=== PATIENT | male | born 1995 | race Two or more races ===

== ENCOUNTER 2020-11-26 07:35 | Emergency (ER) | payer OTHER, SELFPAY ==
[2020-11-26 07:31] VITALS: BP 143/88; PULSE 90; RESP 20; TEMP 36.5; O2SAT 97
--- NOTE | 2020-11-26 07:54 | ED.NAVMDI ---
HPI - Nausea/Vomiting/Diarrhea General Chief complaint: Unspecified Stated complaint: WITHDRAWALS History of Present Illness HPI Narrative: 25 yo male presents to the ED for fentanyl withdrawal. He reports that he last used 4 days ago. and he is trying to stay off of it. He was previously on methadone. Currently he has nausea, abdominal cramps, and diarrhea. Additionally he reports nasal congestion and sinus pressure. Related Data Allergies Allergy/AdvReac Type Severity Reaction Status Date / Time No Known Allergies Allergy Verified 11/26/20 07:35 Review of Systems Review of Systems: All systems reviewed & are unremarkable except as noted in HPI and below Constitutional: Constitutional: Denies chills and Denies fever(s) Eyes: Eyes: Reports no additional eye complaints ENT: Denies dizziness, Reports nasal congestion and Denies sore throat Cardiovascular: Cardiovascular: Denies chest pain Respiratory: Respiratory: Denies dyspnea Gastrointestinal: Gastrointestinal: Reports as per HPI Genitourinary: Genitourinary: Reports no additional male genitourinary complaints Neurologic: Reports system reviewed and no additional complaints, except as documented [facility] Social History Social History (Updated 11/26/20 @ 17:00 by Case Mai MD) Substance use type: opiates Gender identity (if verbalized by the patient): Male Exam Const: General: healthy appearing, no acute distress and alert Nutritional Appearance: well nourished Orientation/consciousness: patient oriented x3 HENMT: Head: normal to inspection Eyes: Pupils: Equal, round and reactive pupils present Neck: Neck: normal visual inspection Resp: Effort & Inspection: normal respiratory effort Auscultation: clear to auscultation bilaterally Cardio: Rate: regular rate Rhythm: regular rhythm GI: Inspection: non-distended GI Palp: Yes Soft to palpation and No Tenderness to palpation present (GI) Skin: General skin exam: normal color Neuro: General: patient oriented x3, moves all extremities, no focal motor deficits and CN's II-XI intact bilaterally Speech: normal speech Extrem: General: normal to inspection Psych: Appearance: grossly normal Mental Status: mental status grossly normal Affect: normal affect Attitude: cooperative Thought content: No Suicidality present and No Homicidality present Course Vital Signs Vital signs: Vital Signs Temperature 36.5 C 11/26/20 07:31 Pulse Rate 90 11/26/20 07:31 Respiratory Rate 20 11/26/20 07:31 Blood Pressure 143/88 H 11/26/20 07:31 Pulse Oximetry 97 11/26/20 07:31 Temperature 36.5 C 11/26/20 07:31 Pulse Rate 78 11/26/20 09:45 Respiratory Rate 20 11/26/20 09:45 Blood Pressure 126/84 11/26/20 09:45 Pulse Oximetry 100 11/26/20 09:45 MDM - Nausea/Vomiting/Diarrhea MDM Narrative Medical decision making narrative: Feeling better with symptomatic treatment. Resources for drug treatment provided. Differential Diagnosis Differential diagnosis: Likely gastroenteritis, dehydration and other (opiod withdrawal) Medical Records Attestation: I reviewed the patient's medical records. Lab Data Attestation: I reviewed the patient's lab results. Result diagrams: 11/26/20 08:03 11/26/20 08:03 Labs: Lab Results 11/26/20 11/26/20 11/26/20 Range/Units 08:03 08:03 08:03 WBC 10.6 H (4.5-10.0) K/mm3 RBC 5.15 (4.6-6.20) M/mm3 Hgb 15.6 (14.0-18.0) g/dL Hct 45.2 (42.0-52.0) % MCV 87.8 (80-100) fl MCH 30.3 (26-34) pg MCHC 34.5 (32-36) g/dl RDW 11.9 (11.5-14.5) % Plt Count 348 (150-375) k/mm3 MPV 9.7 (7.4-10.4) fl Immature Gran % (Auto) 0.3 (0-0.5) % Neut % (Auto) 80.6 H (45.5-73.1) % Lymph % (Auto) 14.2 L (18.3-44.2) % [place] % (Auto) 4.6 (2.6-8.5) % Eos % (Auto) 0.1 (0-4.4) % Baso % (Auto) 0.2 (0.2-1.2) % Lymph # (Auto) 1.51 (0.9-3.2) K/mm3 [place] # (Auto)
[2020-11-26] MEDS: DICYCLOMINE HCL INJ 20 MG/2 ML VIAL IM (08:04)
[2020-11-26] MEDS: SODIUM CHLORIDE 0.9% IV 1,000 ML 999 ML IV CONT (08:04)
[2020-11-26] MEDS: ONDANSETRON INJ 4 MG/2 ML VIAL IV PUSH (08:04)
[2020-11-26 08:13] LABS: Basophils Percent Auto 0.2 % (0.2-1.2); Eosinophils Percent Auto 0.1 % (0-4.4); Hematocrit 45.2 % (42.0-52.0); Hemoglobin 15.6 g/dL (14.0-18.0); Immature Granulocyte Absolute 0.03 K/mm3 (0.00-0.031); Immature Granulocyte Percent A 0.3 % (0-0.5); Lymphocytes Absolute Auto 1.51 K/mm3 (0.9-3.2); Lymphocytes Percent Auto 14.2 % (18.3-44.2); Mean Corpuscular HGB Conc 34.5 g/dl (32-36); Mean Corpuscular Hemoglobin 30.3 pg (26-34); Mean Corpuscular Volume 87.8 fl (80-100); Mean Platelet Volume 9.7 fl (7.4-10.4); Monocytes Absolute Auto 0.5 K/mm3 (0.1-0.6); Monocytes Percent Auto 4.6 % (2.6-8.5); Neutrophils Absolute Auto 8.6 K/mm3 (1.3-6.7); Neutrophils Percent Auto 80.6 % (45.5-73.1); Platelet Count Result 348 k/mm3 (150-375); Red Blood Count 5.15 M/mm3 (4.6-6.20); Red Cell Distribution Width 11.9 % (11.5-14.5); White Blood Count 10.6 K/mm3 (4.5-10.0)
[2020-11-26 08:15] LABS: Add Urine Microscopic? NO; Appearance Urine Clear (Clear); Bilirubin Urine Negative (Negative); Blood Urine Negative (Negative); Color Urine Yellow (Yellow); Glucose Urine UA Negative (Negative); Ketones Urine Negative (Negative); Leukocyte Esterase Ur Negative LEU/UL (Negative); Nitrate Urine Negative (Negative); Protein Urine Negative (Negative); Specific Grav Ur 1.009 (1.001-1.035); Urobilinogen Urine Negative mg/dL (<2.0)
[2020-11-26 08:22] LABS: Alanine Aminotransferase 30 U/L (4-50); Albumin Level 5.5 g/dL (3.5-5.1); Alkaline Phosphatase 72 U/L (38-126); Anion Gap 11 mmol/L (8-16); Aspartate Amino Transferase 43 U/L (17-59); Bilirubin,Total 0.8 mg/dL (0.2-1.3); Blood Urea Nitrogen 11 mg/dL (9-20); Calcium 10.6 mg/dL (8.4-10.2); Carbon Dioxide 28 mmol/L (22-30); Chloride 101 mmol/L (98-107); Estimated CRCL calculation 116 ml/min; Estimated Glomerular Filt Rate > 60; Glucose 113 mg/dL (75-110); Lipase 23 U/L (23-300); Potassium 3.6 mmol/L (3.4-5.0); Sodium 140 mmol/L (137-145)
[2020-11-26] MEDS: cloNIDine 0.1 MG/24 HR PATCH 1 PATCH TRANSDERM (09:02)
[2020-11-26 09:03] VITALS: BP 129/83; PULSE 80; RESP 20; O2SAT 97
[2020-11-26 09:45] VITALS: BP 126/84; PULSE 78; RESP 20; O2SAT 100
== END 2020-11-26 09:50 | disposition home or self-care (01) ==
PROVIDERS: Emergency Provider Emergency Medicine
DX: F11.23 Opioid dependence with withdrawal (principal)
CPT/HCPCS: 36415; 80053; 81003; 83690; 85025; 96361; 96372; 96374; 99284; A9270; J0500; J2405; J7030

== ENCOUNTER 2022-03-26 10:55 | Emergency (ER) | payer OTHER, SELFPAY ==
[2022-03-26 11:15] VITALS: BP 135/91; PULSE 103; RESP 24; TEMP 37.3; O2SAT 100
[2022-03-26] MEDS: ONDANSETRON HCL ODT 4 MG TABLET SUBLINGUAL (11:25)
--- NOTE | 2022-03-26 11:37 | ED.ABDPAIN ---
HPI - Abdominal Pain General Chief Complaint: Abdominal Pain Stated Complaint: abd pain Time Seen by Provider: 03/26/22 11:30 Source: patient and RN notes reviewed Mode of arrival: ambulatory Limitations: no limitations History of Present Illness HPI narrative: 26 y/o male presented for c/o right sided abdominal pain, nausea and vomiting for 24 hours. Pt is sweating. Endorses hx alcoholism last drink 2 days ago. Drinks at least 1 bottle Luis Daniel daily. Hx opioid withdrawal 04/2021, denies current use. States he was in the hospital a few months ago told 'his gallbladder ruptured,' denies surgery. Denies cough, sob or wheezing. Related Data Allergies Allergy/AdvReac Type Severity Reaction Status Date / Time No Known Allergies Allergy Verified 03/26/22 11:08 Review of Systems Review of Systems: CONSTITUTIONAL: reports body aches, fever, chills ENT: Denies rhinorrhea, congestion CARDIOVASCULAR: Denies chest pain, palpitations, or edema. RESPIRATORY: Denies cough or dyspnea. GASTROINTESTINAL: Endorses right sided abdominal pain, nausea, vomiting, diarrhea. Denies hematochezia, melena, hematemesis GENITOURINARY: Denies dysuria, hematuria, or CVA tenderness. SKIN: Denies rash, itching, or wounds. MUSCULOSKELETAL: Denies back pain, joint pain, or myalgia. NEUROLOGIC: Denies headache, numbness, tingling, or weakness. All systems reviewed & are unremarkable except as noted in HPI and below PMFSH Social History Social History Substance use type: opiates Gender identity (if verbalized by the patient): Male Comments At time of signature, I have reviewed and agree with nursing past medical, surgical, social and family history unless otherwise noted. Please see nursing chart for further information. There is no relevant family history pertinent to the presenting complaint Exam Narrative: GENERAL: illl-appearing, no acute distress. EYES: EOMI. Conjunctivae normal. ENT: Mucous membranes pink and moist. CHEST: No respiratory distress. Clear to auscultation. HEART: Tachycardic, regular No murmur appreciated. Normal peripheral pulses. ABDOMEN: abd soft, nondistended, Tender abdomen Right upper and lower quadrants with guarding EXTREMITIES: Normal range of motion. No edema. SKIN: Warm,diaphoretic Capillary refill normal. Normal skin turgor. NEURO: Alert and oriented x3. PSYCH: Normal affect. Course Course Emergency Course: Patient is aware of diagnosis, understands and agrees to treatment plan. Anticipatory guidance given. Portions of this record may have been created with voice recognition software Level of Care: Express Care Visit Transfer Transfered to: [facility] Transportation: ALS Transfer rationale: Pt is agreeable to transfer to ER for evaluation of abdominal pain and vomiting. Requests transfer to [facility] via ambulance. Risks of transportation reviewed with pt including injury, worsening of condition and . v/u. Report called to hospital, spoke with Sandy Miller PA-C, accepting physician. Pt is in stable condition at time of transfer. Advised to remain NPO and go directly to the hospital. MDM - Abdominal Pain MDM Narrative Medical decision making narrative: Pt advised to transfer to ER for further evaluation. Pt was dropped off by in-laws, requests ambulance transfer. Differential Diagnosis Differential diagnosis: Likely abdominal pain, acute appendicitis, calculus of kidney, gastroenteritis and pancreatitis Discharge Plan Discharge Clinical Impression: Abdominal pain Qualifiers: Abdominal location: right lower quadrant Qualified Code(s): R10.31 - Right lower quadrant pain Patient Disposition: Acute Care Hospital Condition: Stable Prescriptions: No Action ondansetron HCl [Zofran] 4 mg tablet 4 mg PO Q6H PRN (Reason: nausea and vomiting) Qty: 10 0RF dicyclomine 20 mg tablet 20 mg PO TID Qty: 10 0RF Fo
== END 2022-03-26 11:48 | disposition short-term general hospital (02) ==
PROVIDERS: Emergency Provider Nurse Practitioner Family
DX: R10.31 Right lower quadrant pain (principal)
CPT/HCPCS: 99215; A9270; G0463

== ENCOUNTER 2022-03-26 12:05 | Observation (INO) | payer OTHER, SELFPAY ==
[2022-03-26] VITALS (32 sets, daily range): BP systolic 110–155; BP diastolic 52–91; PULSE 63–112; RESP 8–23; TEMP 36.6–37.3; O2SAT 96–100; BMI 21.6
--- NOTE | ~2022-03-26 | CT_ITS ---
EXAMINATION: CT abdomen pelvis w con DATE: 03/26/2022 16:57 INDICATION: abd pain TECHNIQUE: Computed tomography (CT) of the abdomen and pelvis was performed with 100 mL Omnipaque-350 intravenous contrast. Automated exposure control and iterative reconstruction technique were employe d. The dose-length product was 502.37 mGy-cm. COMPARISON: None. FINDINGS: Lower thorax: Unremarkable Liver: Normal. Biliary/Gallbladder: Gallbladder is normal. No bile duct dilation. Pancreas: No mass or duct dilation. Spleen: Normal. Adrenals:No mass. Kidneys: No mass, stone, or hydronephrosis. GI tract: No small or large bowel dilation. Normal appendix. Mesentery/Peritoneum: No ascites, mass, or free air. Retroperitoneum: No mass. Pelvis: Pelvic organs are within normal limits. Soft Tissues: Soft tissues and body wall unremarkable. Bones: No acute osseous finding. IMPRESSION: No acute abdominopelvic process detected. Reviewed, dictated and finalized at location K.
--- NOTE | 2022-03-26 12:21 | ECG_ITS ---
Measurements Intervals [place] Rate: 84 P: 60 WV: 166 QRS: 50 QRSD: 88 T: 31 QT: 360 QTc: 427 Interpretive Statements SINUS RHYTHM NORMAL ECG NO PREVIOUS ECG AVAILABLE FOR COMPARISON Electronically Signed On 03-26-2022 15:25:59 CDT by Madi Garg D.O.
--- NOTE | 2022-03-26 12:23 | ED.NAVMDI ---
HPI - Nausea/Vomiting/Diarrhea General Chief complaint: Nausea/Vomiting/Diarrhea Stated complaint: nausea vomiting no ETOH x 48 hrs daily drinker Time Seen by Provider: 03/26/22 12:13 Source: patient, EMS, RN notes reviewed and old records reviewed Mode of arrival: EMS Limitations: no limitations History of Present Illness HPI Narrative: 26 years old white female referred to our emergency room by ambulance from urgent care complaining of nausea, vomiting over the last 24 hours. Last alcohol intake was 48 hours ago. Patient reports drinking on average 1-1/2 bottle of whiskey/vodka daily. Patient been to [facility] before, less than 1 year ago for alcohol addiction management. Patient also complaining of tremors all over his body. Related Data Allergies Allergy/AdvReac Type Severity Reaction Status Date / Time No Known Allergies Allergy Verified 03/26/22 11:08 Review of Systems Review of Systems: All systems reviewed & are unremarkable except as noted in HPI and below PMFSH Social History Social History Substance use type: opiates Gender identity (if verbalized by the patient): Male Exam Narrative: General appearance: Well-developed, well-nourished, restless, tremors Skin: Normal color Head: Normocephalic, nontraumatic Eyes: Clear conjunctiva ENT: Oropharynx normal, ears normal, nose normal Neck: Supple, nontender Chest and respiratory: Airway patent, no respiratory distress, no accessory muscle use Heart: Regular rate/rhythm Abdomen: Soft, nontender, no organomegaly, quiet bowel sounds Vascular: Normal peripheral pulses, normal capillary refill. 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 Patient still not feeling well, with tremors and shaking. Patient will be admitted, observation. Vital Signs Vital signs: Vital Signs Temperature 37.3 C 03/26/22 12:01 Pulse Rate 75 03/26/22 12:01 Respiratory Rate 21 H 03/26/22 12:01 Blood Pressure 155/91 H 03/26/22 12:01 Pulse Oximetry 96 03/26/22 12:01 Temperature 37.3 C 03/26/22 12:01 Pulse Rate 88 03/26/22 15:00 Respiratory Rate 10 L 03/26/22 15:00 Blood Pressure 118/65 03/26/22 14:46 Pulse Oximetry 100 03/26/22 15:00 MDM - Nausea/Vomiting/Diarrhea Lab Data Result diagrams: 03/26/22 12:54 03/26/22 12:54 Labs: Lab Results 03/26/22 03/26/22 03/26/22 Range/Units 12:54 12:54 12:54 WBC 12.0 H (4.5-10.0) K/mm3 RBC 5.45 (4.6-6.20) M/mm3 Hgb 16.4 (14.0-18.0) g/dL Hct 47.2 (42.0-52.0) % MCV 86.6 (80-100) fl MCH 30.1 (26-34) pg MCHC 34.7 (32-36) g/dl RDW 12.7 (11.5-14.5) % Plt Count 384 H (150-375) k/mm3 MPV 9.3 (7.4-10.4) fl Immature Gran % (Auto) 0.4 (0-0.5) % Neut % (Auto) 87.7 H (45.5-73.1) % Lymph % (Auto) 8.3 L (18.3-44.2) % [place] % (Auto) 3.4 (2.6-8.5) % Eos % (Auto) 0.0 (0-4.4) % Baso % (Auto) 0.2 (0.2-1.2) % Lymph # (Auto) 1.00 (0.9-3.2) K/mm3 [place] # (Auto) 0.4 (0.1-0.6) K/mm3 Eos # (Auto) 0.0 (0-0.3) K/mm3 Baso # (Auto) 0.0 (0.0-0.1) K/mm3 Abs Immat Gran (auto) 0.05 H (0.00-0.031) K/mm3 Absolute Neuts (auto) 10.6 H (1.3-6.7) K/mm3 Absolute Nucleated RBC 0.0 (0.0-0.012) K/mm3 Nucleated RBC % 0.0 (0.0-0.2) % PT 13.4 (11.1-14.7) Seconds INR 1.1 Sodium 140 (137-145) mmol/L Potassium 3.9 (3.4-5.0) mmol/L Chloride 97
[2022-03-26] MEDS: LORazepam INJ (*CRX) 2 MG/ML VIAL IV PUSH ×3 (12:37→23:47)
[2022-03-26 13:02] LABS: Basophils Percent Auto 0.2 % (0.2-1.2); Hematocrit 47.2 % (42.0-52.0); Hemoglobin 16.4 g/dL (14.0-18.0); Immature Granulocyte Absolute 0.05 K/mm3 (0.00-0.031); Immature Granulocyte Percent A 0.4 % (0-0.5); Lymphocytes Percent Auto 8.3 % (18.3-44.2); Mean Corpuscular HGB Conc 34.7 g/dl (32-36); Mean Corpuscular Hemoglobin 30.1 pg (26-34); Mean Corpuscular Volume 86.6 fl (80-100); Mean Platelet Volume 9.3 fl (7.4-10.4); Monocytes Absolute Auto 0.4 K/mm3 (0.1-0.6); Monocytes Percent Auto 3.4 % (2.6-8.5); Neutrophils Absolute Auto 10.6 K/mm3 (1.3-6.7); Neutrophils Percent Auto 87.7 % (45.5-73.1); Platelet Count Result 384 k/mm3 (150-375); Red Blood Count 5.45 M/mm3 (4.6-6.20); Red Cell Distribution Width 12.7 % (11.5-14.5)
[2022-03-26 13:09] LABS: Alanine Aminotransferase 16 U/L (6-50); Albumin Level 5.6 g/dL (3.5-5.1); Alkaline Phosphatase 80 U/L (38-126); Anion Gap 21 mmol/L (8-16); Aspartate Amino Transferase 23 U/L (17-59); Bilirubin,Total 1.2 mg/dL (0.2-1.3); Blood Urea Nitrogen 19 mg/dL (9-20); Carbon Dioxide 22 mmol/L (22-30); Chloride 97 mmol/L (98-107); Creatine Kinase 50 U/L (55-170); Estimated CRCL calculation 97 ml/min; Estimated Glomerular Filt Rate > 60; Glucose 115 mg/dL (65-110); Potassium 3.9 mmol/L (3.4-5.0); Sodium 140 mmol/L (137-145)
[2022-03-26 13:10] LABS: Ethanol < 10 mg/dL (<10)
[2022-03-26 13:11] LABS: INR 1.1; Prothrombin Time 13.4 Seconds (11.1-14.7)
[2022-03-26] MEDS: THIAMINE HCL INJ 100 MG, FOLIC ACID INJ 1 MG, MULTIVITAMINS-12 INJ VIAL 1 5 ML, MULTIVI... 500 MG IV CONT (13:28)
[2022-03-26 13:38] LABS: Appearance Urine Clear (Clear); Bilirubin Urine 2+ (Negative); Blood Urine Negative (Negative); Color Urine Yellow (Yellow); Glucose Urine UA Negative (Negative); Ketones Urine 4+ mg/dL (Negative); Leukocyte Esterase Ur Negative LEU/UL (Negative); Nitrate Urine Negative (Negative); Protein Urine 2+ mg/dL (Negative); Specific Grav Ur >= 1.030 (1.001-1.035); pH Urine 5.5 (5.0-9.0)
[2022-03-26] MEDS: LORazepam INJ (*CRX) 2 MG/ML VIAL 1 MG IV PUSH ×2 (13:51→18:40)
[2022-03-26 14:09] LABS: Add Urine Microscopic? YES; RBC Urine 0-2 /hpf (0-2); WBC Urine 0-3 /hpf
[2022-03-26 14:10] LABS: Amorphous Sediment Urine Few; Squamous Epithelial Cell Urine Rare /hpf (Few)
[2022-03-26 14:11] LABS: Bacteria Urine Trace /hpf; Mucus Urine Moderate /lpf
--- NOTE | 2022-03-26 15:31 | PC.NURSE ---
patient given crackers and water per verbal from
--- NOTE | 2022-03-26 16:22 | PM.IMHP ---
H&P: HPI History of Present Illness Date/Time: 03/26/22 16:22 Chief Complaint: Nausea vomiting diarrhea Narrative: This is a 26-year-old male patient who has a history of alcoholism. The patient states that he drinks about on half of Del Duncan a day. He has not had any alcohol the has 48 hours. Patient stated that he has nausea vomiting and alcohol withdrawal symptoms for last 24 hours. The patient stated that only Ativan helps him. The patient had been seen at [facility] last any year ago for alcohol addiction management. The patient has also had withdrawals from opiates in the past as well. His alcohol levels less than 10 today. The patient was given a banana bag in the emergency room, Ativan, and Zofran in the emergency room. His white count is noted to be 12.0. The patient is being admitted to observation status on the date of service of 03/26/2022. Review of Systems Review of Systems: See HPI All systems reviewed & are unremarkable except as noted in HPI and below Constitutional: Constitutional: Reports as per HPI and Reports no additional constitutional complaints Eyes: Eyes: Reports as per HPI and Reports no additional eye complaints ENT: Reports system reviewed and no additional complaints, except as documented and Reports Normal hearing present Cardiovascular: Cardiovascular: Reports no additional cardiovascular complaints Respiratory: Respiratory: Reports no additional respiratory complaints and Reports no additional respiratory complaints Gastrointestinal: Gastrointestinal: Reports as per HPI and Reports no additional gastrointestinal complaints Musculoskeletal: Musculoskeletal: Reports no additional musculoskeletal complaints Integumentary/Breasts: Skin/Breast: Reports system reviewed and no additional complaints, except as docu and Reports as per HPI Neurologic: Reports system reviewed and no additional complaints, except as documented, Reports as per HPI and Reports Normal hearing present Psychiatric: Psychiatric: Reports no additional psychiatric complaints and Reports as per HPI Endocrine: Endocrine: Reports no additional endocrine complaints Hematologic/Lymphatic: Hematologic/Lymphatic: Reports no additional hematologic/lymphatic complaints Allergic/Immunologic: Allergic/Immunologic: Reports no additional allergic/immunologic complaints [facility] Past Medical History Medical History Alcohol abuse Anxiety PTSD (post-traumatic stress disorder) Surgical History Surgical History H/O wisdom tooth extraction Family History Family History Father Alcoholism Mother Heart disease Sibling Mental disorder Social History Social History (Updated 03/26/22 @ 19:05 by Zulma Nieto NP) Social History: He is and has 1 child who is getting ready to be 1-year-old. He works at [employer] as a cook. He drinks one and half bottles of del Duncan daily. He occasionally smokes marijuana. Substance use type: opiates Gender identity (if verbalized by the patient): Male Meds Home Medications and Allergies Home Medications Medication Instructions Recorded Confirmed Type dicyclomine 20 mg tablet 20 mg PO TID #10 tabs 11/26/20 Rx ondansetron HCl 4 mg tablet 4 mg PO Q6H PRN nausea and 11/26/20 Rx (Zofran) vomiting #10 tabs Allergies Allergy/AdvReac Type Severity Reaction Status Date / Time No Known Allergies Allergy Verified 03/26/22 11:08 Vital Signs Vital Signs - 24 hr 03/26/22 12:01 03/26/22 12:45 03/26/22 12:46 Temperature 37.3 C Pulse Rate 75 92 79 Respiratory Rate 21 H 14 11 L Blood Pressure 155/91 H 126/68 Pulse Oximetry 96 99 99 03/26/22 13:00 03/26/22 13:15 03/26/22 13:30 Temperature Pulse Rate 78 90 86 Respiratory Rate 18 12 17 Blood Pressure 134/87 Pulse Oximetry 100
[2022-03-26] MEDS: SODIUM CHLORIDE 0.9% IV 1,000 ML 125 ML IV CONT ×2 (16:31→23:46)
[2022-03-26 16:55] LABS: Magnesium 2.2 mg/dL (1.6-2.3); Phosphorus 3.2 mg/dL (2.5-4.5)
[2022-03-26 17:00] LABS: Lipase 30 U/L (23-300)
[2022-03-26] MEDS: METOCLOPRAMIDE HCL INJ 10 MG/2 ML VIAL IV PUSH (18:41)
--- NOTE | 2022-03-26 19:14 | PC.NURSE ---
Librium not given due to patient vomiting
--- NOTE | 2022-03-26 19:35 | ADMGEN ---
This patient, Sharan Rich, was admitted to IMU Room 204-01. Patient/family oriented to hospital policies and general routines including ID bracelet, bed and alarms, visiting hours, pain management, procedures, bathroom and other care routines, personal items, smoking policy, room service/diet, and visiting hours. Information on how to activate the Rapid Response Team has been discussed. Patient/Family are encouraged to report perceived risks to care and to ask questions if they do not understand what they are told or what they should do.
[2022-03-26 20:10] LABS: Glucose Point of Care 101 mg/dl (65-105)
[2022-03-26] MEDS: chlordiazePOXIDE (*CRX) 25 MG CAPSULE 50 MG PO ×2 (20:18→23:46)
[2022-03-26] MEDS: PANTOPRAZOLE SODIUM IV 40 MG VIAL IV PUSH (20:18)
[2022-03-26 20:32] LABS: Amphetamine Screen Urine Negative (Negative); Barbiturate Screen Urine Negative (Negative); Benzodiazepines Screen Urine Negative (Negative); Cannabinoid Screen Urine Positive (Negative); Cocaine Screen Urine Negative (Negative); Methadone Screen Urine Negative (Negative); Opiate Screen Urine Negative (Negative); Phencyclidine Screen Urine Negative (Negative)
[2022-03-26] MEDS: NICOTINE (*PBKC) 21 MG PATCH 1 PATCH TRANSDERM (21:19)
[2022-03-27] VITALS (8 sets, daily range): BP systolic 121–136; BP diastolic 61–97; PULSE 73–94; RESP 20; TEMP 37.1–37.4; O2SAT 100
[2022-03-27] MEDS: LORazepam INJ (*CRX) 2 MG/ML VIAL IV PUSH ×2 (04:22→08:20)
[2022-03-27] MEDS: ONDANSETRON INJ 4 MG/2 ML VIAL IV PUSH (04:38)
[2022-03-27 04:46] LABS: Basophils Percent Auto 0.3 % (0.2-1.2); Eosinophils Absolute Auto 0.1 K/mm3 (0-0.3); Eosinophils Percent Auto 0.5 % (0-4.4); Hematocrit 41.1 % (42.0-52.0); Hemoglobin 13.7 g/dL (14.0-18.0); Immature Granulocyte Absolute 0.07 K/mm3 (0.00-0.031); Immature Granulocyte Percent A 0.6 % (0-0.5); Lymphocytes Absolute Auto 1.76 K/mm3 (0.9-3.2); Lymphocytes Percent Auto 14.9 % (18.3-44.2); Mean Corpuscular HGB Conc 33.3 g/dl (32-36); Mean Corpuscular Volume 90.1 fl (80-100); Mean Platelet Volume 9.6 fl (7.4-10.4); Monocytes Absolute Auto 1.2 K/mm3 (0.1-0.6); Monocytes Percent Auto 10.4 % (2.6-8.5); Neutrophils Absolute Auto 8.6 K/mm3 (1.3-6.7); Neutrophils Percent Auto 73.3 % (45.5-73.1); Platelet Count Result 282 k/mm3 (150-375); Red Blood Count 4.56 M/mm3 (4.6-6.20); Red Cell Distribution Width 12.8 % (11.5-14.5); White Blood Count 11.8 K/mm3 (4.5-10.0)
[2022-03-27 05:14] LABS: Alanine Aminotransferase 10 U/L (6-50); Albumin Level 4.3 g/dL (3.5-5.1); Alkaline Phosphatase 55 U/L (38-126); Anion Gap 15 mmol/L (8-16); Aspartate Amino Transferase 17 U/L (17-59); Bilirubin,Total 1.4 mg/dL (0.2-1.3); Blood Urea Nitrogen 17 mg/dL (9-20); Calcium 8.8 mg/dL (8.4-10.2); Carbon Dioxide 19 mmol/L (22-30); Chloride 106 mmol/L (98-107); Estimated CRCL calculation 104 ml/min; Estimated Glomerular Filt Rate > 60; Glucose 85 mg/dL (65-110); Potassium 3.6 mmol/L (3.4-5.0); Sodium 140 mmol/L (137-145)
[2022-03-27] MEDS: SODIUM CHLORIDE 0.9% IV 1,000 ML 125 ML IV CONT (08:21)
[2022-03-27] MEDS: THIAMINE HCL 200 MG/2 ML VIAL 100 MG IV PUSH (09:16)
[2022-03-27] MEDS: FOLIC ACID 1 MG/0.2 ML INJ IV PUSH (09:17)
[2022-03-27] MEDS: PANTOPRAZOLE SODIUM IV 40 MG VIAL IV PUSH (09:17)
[2022-03-27] MEDS: ENOXAPARIN 40 MG/0.4 ML SYRINGE SUB-Q (09:18)
[2022-03-27] MEDS: NICOTINE (*PBKC) 21 MG PATCH 1 PATCH TRANSDERM (09:18)
[2022-03-27] MEDS: chlordiazePOXIDE (*CRX) 25 MG CAPSULE 50 MG PO (11:00)
--- NOTE | 2022-03-29 14:54 | PM.DS ---
DS: Admitting Diagnosis Discharge Date 03/27/22 Admitting Diagnosis Nausea/Vomiting/Diarrhea DS: Discharge Diagnosis Discharge Diagnosis (1) Alcohol withdrawal syndrome: Code(s): F10.939 - Alcohol use, unspecified with withdrawal, unspecified Status: Acute (2) Alcohol abuse: Code(s): F10.10 - Alcohol abuse, uncomplicated Status: Acute (3) PTSD (post-traumatic stress disorder): Code(s): F43.10 - Post-traumatic stress disorder, unspecified Status: Acute (4) Anxiety: Code(s): F41.9 - Anxiety disorder, unspecified Status: Acute (5) Abdominal pain: Qualifiers: Abdominal location: right lower quadrant Qualified Code(s): R10.31 - Right lower quadrant pain Code(s): R10.9 - Unspecified abdominal pain Status: Inactive DS: Summary Hospital Course Reason for hospitalization: 26yo male here for Nausea/Vomiting/Diarrhea Hospital Course: Patient was seen in the ED and was evaluated. He was admitted but a short time later, he signed out against medical advise. He was neither seen nor examined by myself. Time Spent with Patient Time attestation: Total time spent providing and/or coordinating discharge services: Discharge Plan Discharge Consulting providers: Zulma Nieto ; Lamont Montgomery ; Madi Garg Patient Disposition: Left Against Medical Advice Patient Instructions: Enoxaparin (By injection), How to Stop Smoking (GEN), Alcohol Withdrawal (DC) Discharge Medications: No Action No Home Medications Date of admission: 03/26/22 15:40 Primary Care Provider: PHYSICIAN,HOUSING COORDINATOR Admitting Provider: Anish Fairbanks Attending physician on admission: Anish Fairbanks Condition: Stable
== END 2022-03-27 11:10 | disposition left against medical advice (07) ==
LOC: ANHED 15:51 → ANHIMU 18:25
PROVIDERS: Nurse Practitioner; Admitting Provider Internal Medicine; Emergency Provider Emergency Medicine; Visit Provider Internal Medicine
DX: F10.139 Alcohol abuse with withdrawal, unspecified (principal); Y90.0 Blood alcohol level of less than 20 mg/100 ml; F43.10 Post-traumatic stress disorder, unspecified; F41.9 Anxiety disorder, unspecified; R10.31 Right lower quadrant pain; R11.2 Nausea with vomiting, unspecified; R19.7 Diarrhea, unspecified; F11.90 Opioid use, unspecified, uncomplicated; F12.90 Cannabis use, unspecified, uncomplicated; Z53.29 Procedure and treatment not carried out because of patient's decision for other reasons; Z81.1 Family history of alcohol abuse and dependence; Z79.899 Other long term (current) drug therapy
CPT/HCPCS: 36415; 74177; 80053; 80307; 81001; 82550; 82728; 82948; 83690; 83735; 84100; 85025; 85610; 93005; 96361; 96365; 96366; 96372; 96375; 96376; 99285; A9270; C9113; G0378; J1650; J2060; J2405; J2765; J3411; J3475; J7030; Q9967